=== PATIENT | female | born 1990 | race Caucasian/White ===

== ENCOUNTER → 2017-07-05 | Outpatient (CLI) | payer BC ==
[~2017-07-05] MED LIST: AMOXPOW3 PO; MULT-506 PO; PROP40TA5 PO
== END | disposition home or self-care (01) ==
LOC: C.PAPS 16:38
PROVIDERS: ATTEND Obstetrics & Gynecology
DX: R87.612 Low grade squamous intraepithelial lesion on cytologic smear of cervix (LGSIL) (principal)

== ENCOUNTER → 2017-07-05 | Outpatient (CLI) | payer BC | END | disposition home or self-care (01) | LOC: C.PATHSPEC 16:00 | PROVIDERS: ATTEND Obstetrics & Gynecology | DX: R87.612 Low grade squamous intraepithelial lesion on cytologic smear of cervix (LGSIL) (principal); N72 Inflammatory disease of cervix uteri; R87.610 Atypical squamous cells of undetermined significance on cytologic smear of cervix (ASC-US) ==

== ENCOUNTER → 2017-07-10 | Outpatient (CLI) | payer BC ==
[2017-07-10 12:22] LABS: BASO % 0.5 %; BASO ABS # 0.03 K/uL (0-0.2); COMPLETE YES; EOS % 2.2 %; HEMATOCRIT 40.5 % (37-47); IG% 0.2 %; LYMPH % 29.9 %; LYMPH ABS # 1.92 K/uL (1.2-3.4); MEAN CELL VOLUME 90.6 fL (80-100); MEAN CORPUSCULAR HEMOGLOBIN 30.6 pg (25-34); MEAN CORPUSCULAR HGB CONC 33.8 g/dl (32-36); MEAN PLATELET VOLUME 11.9 fL (7.4-10.4); MONO % 5.6 %; NEUT % 61.6 %; PLATELET COUNT 189 K/uL (130-400); RED BLOOD COUNT 4.47 M/uL (4.2-5.4); WHITE BLOOD COUNT 6.42 K/uL (4.8-10.8)
[2017-07-10 12:45] LABS: PREG INTERNAL NEGATIVE QC NEG CLEAR BACKGROUND; PREG INTERNAL POSITIVE QC POS CONTROL LINE
== END | disposition home or self-care (01) ==
LOC: C.LAB1850 10:59
PROVIDERS: ATTEND Obstetrics & Gynecology
DX: Z01.812 Encounter for preprocedural laboratory examination (principal); N92.0 Excessive and frequent menstruation with regular cycle; Z30.2 Encounter for sterilization

== ENCOUNTER → 2017-07-12 | Day surgery (SDC) | payer BC ==
[2017-06-19 11:50] VITALS: Ht 162.6 cm; Wt 54.5 kg
--- NOTE | 2017-07-05 15:15 | HISTORY & PHYSICAL EXAMINATION ---
DATE OF ADMISSION: 07/12/2017 CHIEF COMPLAINT: Heavy vaginal bleeding with clotting, desire for permanent sterilization. HISTORY OF PRESENT ILLNESS: The patient is a 27-year-old 3, para 3. General health is complicated by mitral valve prolapse and premature ventricular contractions for which she is on Inderal 40 mg t.i.d. She is on no form of control. She has had heavy vaginal bleeding with clots and heavy bleeding for over a year. Cycles are described as coming every 28 days, lasting for 6-7 days. She has 3 heavy days where she can easily soak over a pad an hour and she is unable to leave the house due to the heavy bleeding. She has also had trouble with control pills, which give her migraines and with some of these migraine she has symptoms of aura. She is presently being scheduled for an outpatient D&C, hysteroscopy, uterine ablation and bilateral tubal ligation. She has also been informed of the nature of the procedure of tubal ligation and that it is intended to result in permanent and irreversible sterility. PAST MEDICAL HISTORY: She has 3 children in good health. ALLERGIES: ALLERGIC TO SULFA. PAST SURGICAL HISTORY: She has had her wisdom teeth removed. MEDICAL HISTORY: She has a history of migraines with aura. She has PVCs for which she takes beta blockers. SOCIAL HISTORY: No smoking. No excessive alcohol intake. Works as a housewife. FAMILY HISTORY: Mom is 49 in good health. Father 49 in good health. Two sisters in good health. REVIEW OF SYSTEMS: She has problems with migraine headaches which are associated with aura. Headaches are severe enough that she has often had to go to the Emergency Room for shots of Demerol to control the pain. PHYSICAL EXAMINATION: GENERAL: Well-developed, well-nourished 27-year-old white female, alert, oriented x3 and cooperative in no acute distress, appears stated age. EYES: Conjunctivae are pink, sclerae white, no evidence of jaundice. EARS: Had normal light reflex bilaterally. NOSE: Had normal mucosa. Septum is midline. There were no polyps. THROAT: No erythema or evidence of infection. Teeth are in good state of repair. HEAD: Normocephalic, normal distribution of hair. NECK: Supple. Trachea midline. Thyroid is not enlarged. There is no adenopathy appreciated. Both carotids are of good intensity. CHEST: Clear to auscultation and percussion. No wheezes, rales or rhonchi appreciated. HEART: Regular rhythm. S1 and S2 are normal. BREAST EXAMINATION: Normal. ABDOMEN: Soft and nontender. PELVIC EXAMINATION: Revealed normal-appearing cervix. Uterus was top normal size. There were no adnexal masses appreciated. MUSCULOSKELETAL EXAMINATION: Revealed no calf tenderness. IMPRESSIONS OF THIS CASE: Status post wisdom teeth removal, history of migraine headaches, premature ventricular contractions, hypermenorrhea and desire for permanent sterilization.
[~2017-07-12] VITALS: Ht 162.6 cm; Wt 54.5 kg
[~2017-07-12] MED LIST changes: +ATROPINE SULFATE 0.1 MG/ML 5ML SYR IV PRN; +BUPIVACAINE/EPINEPHRINE 0.5% MPF 1:200,000 30 ML VIAL ONE; +DEXAMETHASONE SOD INJ 4 MG/ML VIAL ONE; +EpHEDrine SULFATE INJ 50 MG/ML AMP IV PRN; +FENTANYL CITRATE INJ 50 MCG/1 ML 2 ML VIAL IV PRN; +FENTANYL CITRATE INJ 50 MCG/1 ML 2 ML VIAL ONE; +GLYCOPYRROLATE INJ 0.2 MG/ML VIAL ONE; +HYDROCODONE/ACETAMOPHEN 5/325MG TAB PO PRN; +IBUPROFEN 600 MG TAB PO PRN; +KETOROLAC TROMETHAMINE 30 MG/ML VIAL IV. PRN; +KETOROLAC TROMETHAMINE 30 MG/ML VIAL ONE; +LACTATED RINGER'S 1000ML 1,000 ML IV SCH; +LIDOCAINE HCL 2% 2 ML VIAL (20MG/ML) ONE; +MIDAZOLAM HCL 1 MG/ML 2ML VIAL ONE; +NEOSTIGMINE METHYLSULFATE 5 MG/5 ML SYR ONE; +ONDANSETRON INJ 2 MG/ML 2 ML VIAL IV PRN; +ONDANSETRON INJ 2 MG/ML 2 ML VIAL ONE; +OXYCODONE/ACETAMINOPHEN 5-325 TAB PO PRN; +PROMETHAZINE HCL INJ 6.25 MG in SODIUM CHLORIDE 0.9% 50ML 50 ML IV PRN; +PROPOFOL IV EMULSION 10 MG/ML 20 ML VIAL IV ONE; +ROCURONIUM BROMIDE 10 MG/ML 5 ML VIAL IV ONE; +SODIUM CHLORIDE 0.9% 1000ML 1,000 ML IV SCH; +SODIUM CHLORIDE 0.9% INJ 10 ML VIAL ONE
--- NOTE | 2017-07-12 11:55 | History & Physical Bridge Note ---
H&P Re-Evaluation Bridge Note: I have examined the patient, reviewed the History & Physical and in the interval since the performance of the History & Physical I have noted the following changes of clinical significance: No changes noted
--- NOTE | 2017-07-12 13:12 | [facility] Post Operative Brief Note ---
Immediate Operative Summary Operative Date Jul 12, 2017. Pre-Operative Diagnosis Hypermenorrhea, desire for sterilization Post-Operative Diagnosis same Procedure(s) Performed Laparoscopic Tubal Sterilization, Dilatation And Curettage, Hysteroscopy With Endometrial Ablation Surgeon Dr Ernst Clip Wrapper Surgeon(s) none Estimated Blood Loss 10 ML Findings normal pelvis Specimens A) endometrial currettings Complication(s) None Disposition Recovery Room / PACU
--- NOTE | 2017-07-12 13:15 | Discharge Instructions-SurgCtr ---
Discharge Instructions Date of Service Jul 12, 2017. Visit Reason for Visit: Hypermenorrhea, Desire For Sterilization Discharge Discharge Diagnosis / Problem: heavy vaginal bleeding Discharge Goals Goal(s): Decrease discomfort, Improve function Activity Recommendations Activity Limitations: as noted below SPECIAL CARE INSTRUCTIONS: * Check temperature twice daily for one week. Report any elevation over 100.4 degrees Fahrenheit (38.0 degrees Celsius). * Call office in the next few days for return appointment. * You may experience some vaginal spotting and/or bleeding, this is normal for one or two weeks and should not alarm you. * Post-operative discomfort may consist of a sore throat, a "bloated" feeling and pain in the shoulders. These are normal symptoms which usually only last for two or three days. FOLLOW UP VISIT: Keep any scheduled doctor appointments. Anesthesia . Post Anesthesia Instructions: If you have had General Anesthesia or IV Sedation: * Do not drive today. * Resume driving when surgeon permits. * Do not make important decisions or sign legal documents today. * Call surgeon for: 1. Temperature elevations greater than 101 degrees F. 2. Uncontrollable pain. 3. Excessive bleeding. 4. Persistent nausea and vomiting. 5. Medication intolerance (nausea, vomiting or rash). * For nausea and vomiting use only clear liquids such as: tea, soda, bouillon until nausea subsides, then gradually increase diet as tolerated. * If you have any concerns or questions, call your surgeon's office. If physician is unavailable and it is an emergency, call 911 or go to the nearest emergency room. . Instructions / Follow-Up Instructions / Follow-Up ACTIVITY RECOMMENDATIONS: * Rest the first 2-3 days. You should be back to your normal activity levels by day 3. * No heavy lifting for 2 weeks. * No intercourse, tampons or douching for 1-2 weeks. * You may shower the next day. * Do not drive anytime that you are taking narcotic pain medicines. RETURN TO SCHOOL/WORK: * May return to school or work after 2-3 days. DIET: Nausea may occur in the immediate post-operative period. If so, take clear liquids such as tea, bouillon, apple juice until all nausea has subsided, then resume usual diet. MEDICATIONS: Resume previous medications unless instructed otherwise by your surgeon. Ibuprofen 200mg 2-3 tablets every 4-6 hours as needed -- OR -- Aleve 2 tablets every 8-12 hours as needed for post-operative discomfort Medications are over the counter. Tylenol may be used if above medications are contraindicated or not preferred. Medication should be taken with food or milk. Do not take on an empty stomach. SPECIAL CARE INSTRUCTIONS: * Check temperature twice daily for one week. report any elevation over 101 degrees. * You may experience some vagina spotting and/or bleeding. This is normal for 1 -2 weeks and should not be heavier than a normal period. If it is unusual in amount, call your physician. * Post-operative discomfort may consist of a sore throat, a "bloated" feeling and pain in the shoulders. these are normal symptoms, which usually only last for 2-3 days. * Remove band-aids tomorrow and shower. There is no need to replace band-aids unless there is drainage or discomfort. FOLLOW UP VISIT: Call your doctor's office for a post-operative 2 week visit if not already scheduled. Diet Recommendations Home Diet: resume previous diet Procedures Procedures Performed: Laparoscopic Tubal Sterilization, Dilatation And Curettage, Hysteroscopy With Endometrial Ablation Pending Studies Studies pending at discharge: no Medical Emergencies . Who to Call and When: Medical Emergencies: If at any time you feel your situation is an emergency, please call 911 immediately. . Non-Emergent Contact Non-Emergency issues call your: Information Security Consultant Call Non-Emergent contact if: temperature is above 100.5 . . "Provider Documentation" section prepared by Ernesto Ernst. .
--- NOTE | 2017-07-12 13:43 | OPERATIVE REPORT ---
DATE OF OPERATION: 07/12/2017 PROCEDURE: D&C hysteroscopy, endometrial ablation along with the laparoscopic tubal cauterization. INDICATIONS FOR SURGERY: Heavy vaginal bleeding with clotting. Desire for permanent sterilization. POSTOPERATIVE DIAGNOSES: Same. Uterus sounded to 9 cm. SURGEON: Dr. Ernst. ESTIMATED BLOOD LOSS: 10 mL. ANESTHESIA: General. OPERATIVE FINDINGS AND PROCEDURE: The patient was brought to the OR table, correctly identified by armband and conversation. General anesthesia was administered. Perineum and vagina were painted with Betadine paint along with the lower abdomen and umbilical area. A Larson catheter was used to empty the bladder. A careful pelvic exam under anesthesia revealed a normal size, mid to retroverted positioned uterus. There were no adnexal masses appreciated. A weighted speculum was placed in the posterior vagina. Anterior lip of the cervix was grasped with a single tooth tenaculum at 12 o'clock. The uterus was sounded to 9 cm. Cervix was dilated with graduated dilators. The small hysteroscope with normal saline distention medium was placed into the uterine cavity. Photographs were taken. There were no obvious polyps present. After photographing the endometrial cavity while the hysteroscope was removed, then a NovaSure endometrial device was inserted into the uterine cavity. The cervical length was measured at 5 cm. The device was opened and it spread to about 4.5 cm. We then did a test to ensure that the uterine cavity was intact. The test passed and then, the device turned on. At 1 minute and 32 seconds, the device stopped. We then waited for a while and then removed the NovaSure device from the uterus. We reinserted the hysteroscope. It should be noted that the power was 124 and cavity width was 4.5. Cervical length was 5 and the run time was 1 minute and 32 seconds. After reinserting the hysteroscope, we demonstrated a good hollie of the endometrial cavity, removed the scope and then inserted an acorn cannula and connected it to the cervix. Attention was turned to the lower abdomen. Subumbilical area was infiltrated with local with epinephrine. Stab wound was placed and Veress needle was inserted into the abdominal cavity. Position was checked with normal saline. Then, about 3 liters of carbon dioxide gas was passed under low pressure. Incision was then widened laterally. Large cannula and trocar was inserted. Trocar was removed and then laparoscope was inserted. Good visualization of pelvic structures was obtained at this time. Photographs were taken. A second puncture site was made in the midline 3 fingerbreadths above the pubic symphysis. This area was infiltrated with local with epinephrine. Stab wound was placed and then, a 5-mm trocar and sleeve was inserted under direct visualization. Trocar was removed and then a blunt probe was used to manipulate the bowels out of the pelvic cavity. Bipolar cauterization forceps was inserted into the abdomen and each fallopian tube was grasped in the mid portion and cauterized in 2 consecutive and adjacent areas, the burn going through the tube and into the meso. Following this, the cautery was removed. Laparoscopic scissors were inserted and the burned area was cut and with a blunt probe, you could see that the tube had been transected on both the right and left side. Photographs were taken. Following this, hemostasis was excellent. The gas was expressed manually. Instruments were removed. Ports were cleansed with Betadine and sutured with interrupted suture of Vicryl. I attest to the content of the Intraoperative Record and any orders documented therein. Any exception s are noted below.
[2017-07-12 14:12] VITALS: TEMP 36.4
--- NOTE | 2017-07-12 14:38 | Anesthesia Progress Nt - [facility] ---
Anesthesia Post Op Note Date & Time Jul 12, 2017 at 14:38 Vital Signs Pain Intensity: 2 Vital Signs Past 12 Hours Date Time Temp Pulse Resp B/P (MAP) Pulse Ox O2 Delivery O2 Flow Rate FiO2 07/12/17 14:12 36.4 66 16 102/69 (80) 98 Room Air 07/12/17 14:03 68 14 07/12/17 14:03 69 14 98 07/12/17 14:01 110/67 07/12/17 13:58 36.7 69 12 110/67 98 Room Air 07/12/17 13:58 61 15 98 07/12/17 13:58 61 15 07/12/17 13:55 103/71 07/12/17 13:53 58 15 99 07/12/17 13:53 58 15 07/12/17 13:50 103/77 07/12/17 13:48 68 17 100 07/12/17 13:48 68 17 07/12/17 13:46 112/76 07/12/17 13:43 55 14 07/12/17 13:43 55 14 100 07/12/17 13:40 117/75 07/12/17 13:38 54 20 100 07/12/17 13:38 53 20 07/12/17 13:35 113/77 07/12/17 13:33 54 19 07/12/17 13:33 54 19 100 07/12/17 13:30 116/79 07/12/17 13:28 64 23 07/12/17 13:28 63 23 100 07/12/17 13:25 109/78 07/12/17 13:23 71 14 07/12/17 13:23 72 14 100 07/12/17 13:20 112/78 07/12/17 13:18 72 14 100 07/12/17 13:18 72 14 07/12/17 13:15 110/80 07/12/17 13:13 90 07/12/17 13:13 36.6 87 12 117/81 100 Mask 6 07/12/17 13:13 85 117/81 100 07/12/17 11:23 36.8 64 16 114/78 (90) 99 Room Air Notes Mental Status: alert / awake / arousable, participated in evaluation Pt Amnestic to Procedure: Yes Nausea / Vomiting: adequately controlled Pain: adequately controlled Airway Patency, RR, SpO2: stable & adequate BP & HR: stable & adequate Hydration State: stable & adequate Anesthetic Complications: no major complications apparent
[2017-07-12 14:40] VITALS: BP 102/65; PULSE 66; O2SAT 96
== END | disposition home or self-care (01) ==
LOC: X.SURG 10:52
PROVIDERS: ATTEND Obstetrics & Gynecology
DX: Z30.2 Encounter for sterilization (principal); N92.0 Excessive and frequent menstruation with regular cycle; Z88.2 Allergy status to sulfonamides; Z98.818 Other dental procedure status

== ENCOUNTER 2017-12-12 11:48 | Inpatient (IN) | payer BC ==
[~2017-12-12] VITALS: Ht 162.6 cm; Wt 56.0 kg
[~2017-12-12 11:48] MED LIST changes: -ATROPINE SULFATE 0.1 MG/ML 5ML SYR IV PRN; -BUPIVACAINE/EPINEPHRINE 0.5% MPF 1:200,000 30 ML VIAL ONE; -DEXAMETHASONE SOD INJ 4 MG/ML VIAL ONE; -EpHEDrine SULFATE INJ 50 MG/ML AMP IV PRN; -FENTANYL CITRATE INJ 50 MCG/1 ML 2 ML VIAL IV PRN; -FENTANYL CITRATE INJ 50 MCG/1 ML 2 ML VIAL ONE; -GLYCOPYRROLATE INJ 0.2 MG/ML VIAL ONE; -HYDROCODONE/ACETAMOPHEN 5/325MG TAB PO PRN; -IBUPROFEN 600 MG TAB PO PRN; -KETOROLAC TROMETHAMINE 30 MG/ML VIAL IV. PRN; -KETOROLAC TROMETHAMINE 30 MG/ML VIAL ONE; -LACTATED RINGER'S 1000ML 1,000 ML IV SCH; -LIDOCAINE HCL 2% 2 ML VIAL (20MG/ML) ONE; -MIDAZOLAM HCL 1 MG/ML 2ML VIAL ONE; -NEOSTIGMINE METHYLSULFATE 5 MG/5 ML SYR ONE; -ONDANSETRON INJ 2 MG/ML 2 ML VIAL IV PRN; -ONDANSETRON INJ 2 MG/ML 2 ML VIAL ONE; -OXYCODONE/ACETAMINOPHEN 5-325 TAB PO PRN; -PROMETHAZINE HCL INJ 6.25 MG in SODIUM CHLORIDE 0.9% 50ML 50 ML IV PRN; -PROPOFOL IV EMULSION 10 MG/ML 20 ML VIAL IV ONE; -ROCURONIUM BROMIDE 10 MG/ML 5 ML VIAL IV ONE; -SODIUM CHLORIDE 0.9% 1000ML 1,000 ML IV SCH; -SODIUM CHLORIDE 0.9% INJ 10 ML VIAL ONE
--- NOTE | 2017-12-12 12:47 | History and Physical ---
History & Physical Date Dec 12, 2017. Chief Complaint Left iliac vein thrombosis History of Present Illness The patient is a 27 year old female who developed left leg swelling last week. She was diagnosed as a left iliac venous thrombosis. She had a repeat study done this week which did not show any change. Her leg is still swollen. She was on Xarelto for the DVT. She does complain of pain in her left leg. She denies chest pain or shortness of breath. She denies any previous leg swelling or clots in either leg. She has not been on any long trips. 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 No family history of clotting. No bleeding tendencies. She does have mitral valve prolapse. Vitals Vital Signs Past 12 Hours Date Time Temp Pulse Resp B/P (MAP) Pulse Ox O2 Delivery O2 Flow Rate FiO2 12/12/17 11:51 36.8 86 20 115/79 100 Room Air Allergies Coded Allergies: Sulfa Antibiotics (Verified Allergy, Unknown, UNSURE, A CHILD RX, 07/12) Home Medications Scheduled Multivitamin (Multivitamin), 1 TAB PO QAM Propranolol Hcl (Propranolol Hcl), 1 TAB PO BID Scheduled PRN [Amoxicillin], 4 CAP PO DIRECTED PRN for BEFORE DENTAL PROCEDURES Problem List Medical Problems: (1) Iliac vein thrombosis, left Surgical / Medical History Hx Cardiac Surgery: No Hx Abdominal Surgery: No Hx Cancer Surgery: No Hx Thoracic Surgery: No Hx Orthopedic: No Hx Urinary Tract Surgery: No Past Medical/Surgical History: Other (mitral valve prolapse) Social History Smoking Status: Never Smoker Hx Tobacco Use In Past Year?: No Hx Alcohol Use - Type & Amnt: No Hx Substance Use -Type & Amnt: No Review of Systems Constitutional: No chills, No diaphoresis, No fever, No malaise, No weakness, No weight gain, No weight loss, No sweats, No fatigue, No problem reported Eyes: No discharge, No blurred vision, No double vision, No eye pain, No tearing, No itching, No photophobia, No redness, No visual changes, No dryness, No irritation, No problem reported ENMT: No dental pain, No loss of hearing, No epistaxis, No ear discharge, No ear pain, No gum swelling, No mouth pain, No mouth swelling, No nasal congestion , No nasal pain, No rhinorrhea, No stridor, No tinnitus, No sore throat, No throat swelling, No problem reported Respiratory: No cough, No cyanosis, No LEWIS, No hemoptysis, No orthopnea, No PND , No short of breath, No sputum production, No stridor, No wheezing, No dyspnea , No problem reported Cardiovascular: No chest pain, No chest tightness, No chest pressure, No palpitations, No syncope, No diaphoresis, No edema, No intermittent claudication , No orthopnea, No cyanosis, No mumur, No lightheadedness, No paroxysmal nocturnal dyspnea, No problem reported Gastrointestinal: No abdominal pain, No constipation, No diarrhea, No nausea, No vomiting, No anorexia, No appetite changes, No belching, No flatulence, No food intolerance, No hematemesis, No hemorrhoids, No hematochezia, No stool changes, No heartburn, No indigestion, No dysphagia, No rectal bleeding, No problem reported Genitourinary - Female: No dysmenorrhea, No dysuria, No hematuria, No hesitancy , No menorrhagia, No metrorrhagia, No , No rash, No urinary frequency, No urinary incontinence, No urinary retention, No urinary urgency, No vulvadynia , No vaginal bleeding, No vaginal discharge, No vaginal itching, No breast problems, No problem reported Musculoskeletal: + problem reported (left leg pain), No back pain, No gout, No joint pain, No joint swelling, No muscle pain, No muscle stiffness, No muscle weakness, No neck pain Neurologic: No dizziness, No weakness, No headache, No lethargy, No numbness, No paresthesia, No pre-existing deficit, No seizures, No tics, No tingling, No tremors, No vertigo, No memory loss, No LOC, No problem reported Psychiatric: No anxiety, No alcohol abuse, No auditory hallucinations, No depression, No drug abuse, No homicidal ideation, No mood changes, No suicidal ideation, No visual hallucinations, No problem reported Physical Exam Constitutional: General Apperance: heathly-appearing, well-nourished, well-developed Level of Distress: NAD Ambulation: limited ambulation Psychiatric: Mental Status: active & alert, normal mood, normal affect Orientation: oriented except where noted, to time, to place, to person Memory: recent memory normal, remote memory normal Head: normocephalic Neck: supple, trachea midline Lungs: Auscultation: breath sounds normal Cardiovascular: Heart Auscultation: RRR Peripheral Pulses: Pulses: full and equal, in all extremities except if noted Abdomen: Inspection & Palpation: soft Musculoskeletal: normal, normal strength (5/5 throughout), normal tone Extremities: Upper Right: no cyanosis, no edema, no varicosities, no palpable cord, no clubbing, no ulcers, no mottling Upper Left: no cyanosis, no edema, no varicosities, no palpable cord, no clubbing, no ulcers, no mottling Lower Right: no cyanosis, no edema, no varicosities, no palpable cord, no clubbing, no ulcers, no mottling Lower Left: edema Neurologic: Cranial Nerves: grossly intact Sensation: grossly intact Assessment and Plan Imp: DVT of left iliac vein Plan: Patient is admitted for anticoagulation therapy with infusion of TPA to be started tomorrow. I have discussed the risks options and benefits of the procedure with the patient. The patient understands the risks options and benefits and agrees to the procedure.
[2017-12-12 13:50] VITALS: BP 112/75; PULSE 72; TEMP 36.6; O2SAT 99; Ht 162.6 cm; Wt 56.0 kg
[2017-12-12 14:20] LABS: HEMATOCRIT 39.2 % (37-47); HEMOGLOBIN 13.7 g/dL (12.0-16.0); MEAN CELL VOLUME 88.3 fL (80-100); MEAN CORPUSCULAR HEMOGLOBIN 30.9 pg (25-34); MEAN CORPUSCULAR HGB CONC 34.9 g/dl (32-36); MEAN PLATELET VOLUME 10.8 fL (7.4-10.4); PLATELET COUNT 246 K/uL (130-400); RED CELL DISTRIBUTION WIDTH CV 12.6 % (11.5-14.5); RED CELL DISTRIBUTION WIDTH SD 40.5 fL (36.4-46.3); WHITE BLOOD COUNT 8.18 K/uL (4.8-10.8)
[2017-12-12 14:28] LABS: INR 1.3 (0.9-1.1); PTT PATIENT 35.9 SECONDS (21.0-31.0)
[2017-12-12] MEDS ORDERED: SODIUM CHLORIDE 0.9% 1000ML 1,000 ML IV SCH (14:30)
[2017-12-12 14:38] LABS: CALCIUM 9.5 mg/dl (8.5-10.1); CREATININE 0.6 mg/dl (0.60-1.20); POTASSIUM 3.7 mmol/L (3.5-5.1)
[2017-12-12] MEDS ORDERED: XRL10 PO (14:42)
[2017-12-12] MEDS ORDERED: DOCU100C31 PO (14:43)
[2017-12-12] MEDS ORDERED: OXYC1TAB3 PO (14:43)
[2017-12-12] MEDS: OXYCODONE/ACETAMINOPHEN 5-325 TAB PO PRN (14:47)
[2017-12-12 15:18] VITALS: BP 92/62; PULSE 93; TEMP 36.9; O2SAT 99
[2017-12-12] MEDS ORDERED: HEPARIN 25000 UNIT/500 ML D5W ONE (15:44)
[2017-12-12] MEDS: HEPARIN 25,000 UNIT/500ML D5W 500 ML IV SCH ×2 (16:15→22:36)
[2017-12-12] MEDS: PROPRANOLOL HCL 20 MG TAB PO SCH (20:57)
[2017-12-12 22:35] LABS: PTT PATIENT 50.2 SECONDS (21.0-31.0)
[2017-12-12 23:26] VITALS: BP 98/55; PULSE 66; TEMP 36.7; O2SAT 94
[2017-12-13] VITALS (15 sets, daily range): BP systolic 80–109; BP diastolic 44–77; PULSE 64–96; TEMP 36.8–37.2; O2SAT 86–100
[2017-12-13] MEDS: OXYCODONE/ACETAMINOPHEN 5-325 TAB PO PRN ×4 (00:52→21:22)
[2017-12-13] MEDS ORDERED: CEFAZOLIN 1000MG IV PUSH 7.5 ML IV SCH (06:00)
[2017-12-13] MEDS ORDERED: CEFAZOLIN IV 1,000 MG in DEXTROSE 5% 50ML 50 ML IV ONE (06:00)
--- NOTE | 2017-12-13 06:56 | Progress Note ---
Progress Note Date of Service Dec 13, 2017. Progress Note Patient for insertion of infusion catheter with possible TPA. I have discussed the risks options and benefits of the procedure with the patient. The patient understands the risks options and benefits and agrees to the procedure. I have examined the patient, reviewed the History & Physical and in the interval since the performance of the History & Physical I have noted the following changes of clinical significance: No changes noted
[2017-12-13] MEDS: PROPRANOLOL HCL 20 MG TAB PO SCH ×2 (07:11→20:31)
[2017-12-13] MEDS ORDERED: MIDAZOLAM HCL 1 MG/ML 2ML VIAL ONE ×2 (07:26→09:22)
[2017-12-13] MEDS ORDERED: FENTANYL CITRATE INJ 50 MCG/1 ML 2 ML VIAL ONE (07:26)
[2017-12-13 08:32] LABS: PTT PATIENT 65.4 SECONDS (21.0-31.0)
--- NOTE | 2017-12-13 08:42 | Pre Sedation Assessment ---
Pre Sedation Assessment General Date of Sedation: Dec 13, 2017. Vital Signs Past 12 Hours Date Time Temp Pulse Resp B/P (MAP) Pulse Ox O2 Delivery O2 Flow Rate FiO2 12/13/17 00:00 Room Air 12/12/17 23:26 36.7 66 15 98/55 (69) 94 Room Air Review Cardiovascular: regular rate, rhythm Lungs: lungs clear Pre-Sedation Airway Assessment Smoking Status: Unknown if Ever Smoked Short Thick Neck: No Thyro-mental Distance: > 3 Finger Breadths Oral Cavity: WNL Mallampati Classification: Class I ASA Classification: Class II NPO Status Date of Last Intake of Fluids: Dec 12, 2017 Time of Last Intake of Fluids: 2358 Date of Last Intake of Solids: Dec 12, 2017 Time of Last Intake of Solids: 1899 Procedure Planning Contraindications for Sedation: None Current Medications Reviewed: Yes Notes The planned sedation has been discussed with the patient. Informed Consent was obtained. I have identified the patient, determined the appropriateness of sedation and have assessed the patient immediately prior to the procedure. All medicine(s) and interventions are by my order.
[2017-12-13] MEDS ORDERED: LIDOCAINE HCL 1% 20 ML VIAL SQ ONE (09:28)
[2017-12-13] MEDS ORDERED: FENTANYL CITRATE INJ 50 MCG/1 ML 2 ML VIAL IV ONE (09:33)
[2017-12-13] MEDS ORDERED: MIDAZOLAM HCL 1 MG/ML 2ML VIAL IV ONE (09:41)
[2017-12-13] MEDS ORDERED: NURSING VERBAL MED ORDER ONE (09:55)
[2017-12-13] MEDS ORDERED: MoRPHine SULFATE 4 MG/ML 1 ML CARP\\VIAL IV PRN (10:15)
--- NOTE | 2017-12-13 10:17 | [facility] Post Operative Brief Note ---
Immediate Operative Summary Operative Date Dec 13, 2017. Pre-Operative Diagnosis Left Iliac Vein Thrombosis Post-Operative Diagnosis Left Iliac Vein Thrombosis Procedure(s) Performed Insertion of Vena Cava Filter, Right Internal Jugular Approach, Fluoroscopy for positioning. Venacavagram, Insertion of Infusion Catheter for Thrombolysis, Thrombolytic Therapy, Moderate Sedation from 0901 - 1000. Surgeon Dr. Ross Scrap Hoist Operator Surgeon(s) Dr. Qureshi Estimated Blood Loss 2 Findings Consistent with Post-Op Diagnosis Specimens none Drains None Anesthesia Type IV Sedat Cons RN Only Complication(s) none Disposition Accompanied Pt To Recover: no Disposition: Surgical ICU
[2017-12-13] MEDS ORDERED: IODIXANOL (VISIPAQUE) 270 MG/ML 50ML FLUSH ONE (10:34)
[2017-12-13 11:00] LABS: BASO % 0.3 %; BASO ABS # 0.02 K/uL (0-0.2); EOS % 4.9 %; HEMOGLOBIN 12.1 g/dL (12.0-16.0); IG# 0.01 K/uL (0.00-0.02); LYMPH % 25.2 %; LYMPH ABS # 1.54 K/uL (1.2-3.4); MEAN CELL VOLUME 88.8 fL (80-100); MEAN CORPUSCULAR HEMOGLOBIN 30.7 pg (25-34); MEAN PLATELET VOLUME 10.6 fL (7.4-10.4); MONO % 8.3 %; MONO ABS # 0.51 K/uL (0.11-0.59); NEUT % 61.1 %; NEUT ABS # 3.74 K/uL (1.4-6.5); PLATELET COUNT 193 K/uL (130-400); RED CELL DISTRIBUTION WIDTH CV 12.7 % (11.5-14.5); RED CELL DISTRIBUTION WIDTH SD 40.9 fL (36.4-46.3); WHITE BLOOD COUNT 6.12 K/uL (4.8-10.8)
[2017-12-13] MEDS ORDERED: ALTEPLASE, RECOMBINANT 24 MG in SODIUM CHLORIDE 0.9% 250ML 216 ML IV SCH ×2 (11:00)
[2017-12-13 11:04] LABS: MEAN CORPUSCULAR HGB CONC 34.6 g/dl (32-36)
[2017-12-13] MEDS ORDERED: MoRPHine SULFATE 2 MG/ML CARP IV PRN (11:15)
[2017-12-13 11:23] LABS: PTT PATIENT 53.1 SECONDS (21.0-31.0)
[2017-12-13] MEDS: HEPARIN 25,000 UNIT/500ML D5W 500 ML IV SCH ×2 (11:45→20:32)
--- NOTE | 2017-12-13 11:46 | DIAGNOSTIC IMAGING REPORT ---
DATE OF PROCEDURE: 12/13/2017 PREOPERATIVE DIAGNOSIS: Left iliac vein thrombosis. POSTOPERATIVE DIAGNOSIS: Left iliac vein thrombosis. PROCEDURE: Ultrasound-guided right IJ access, insertion of vena cava filter, fluoroscopy for positioning, venacavogram, insertion of infusion catheter for thrombolysis, thrombolytic therapy, moderate sedation 59 minutes. SURGEON: Dr. Fahad Ross. TILTING HEAD BAND SAWYER: Dr. Haily Qureshi. ESTIMATED BLOOD LOSS: 2 mL. SPECIMENS: None. ANESTHESIA: Moderate sedation plus local. COMPLICATIONS: None. INDICATIONS: Mrs. Letty Elliott is an otherwise healthy 27-year-old female who developed left leg swelling last week. She was diagnosed with left iliac vein thrombosis and started on Xarelto. A repeat duplex was obtained which showed persistence of the clot and for this reason she was admitted to [facility]. She was recommended to undergo placement of an IVC filter and lytic catheter for thrombolysis of her left iliac DVT. Risks, benefits, and alternatives were discussed with the patient and she consented to the procedure. DESCRIPTION OF PROCEDURE: The patient was taken to the endovascular suite and placed in the supine position. Her right neck was assessed with ultrasound and a right IJ appeared patent. Her right neck was prepped and draped in the usual sterile fashion. A safety timeout was performed and the patient, procedure, and sidedness were correctly identified. Local anesthesia was used to anesthetize the skin overlying the right IJ. Ultrasound was again used to localize the right IJ and it was accessed with an 18-gauge access needle under ultrasound guidance. Angled 0.035 Glidewire easily passed through the needle and down into the IVC. A small skin wilmer was made at the access site. Needle was removed and a dilator was placed over the wire. This was removed and the sheath accompanying the IVC filter was placed down into the infrarenal IVC. A cavogram was obtained and showed the left iliac vein occlusion. It also identified the position of the renal veins bilaterally. The filter was introduced into the sheath and the sheath withdrawn. This allowed deployment of the IVC filter in the infrarenal IVC. Following successful deployment, the sheath was removed and manual pressure was held over the IJ access site for several minutes with good hemostasis. A sterile dressing was applied. We then turned our attention to the left groin. The left femoral vein was identified with ultrasound. The left groin was then prepped and draped in the usual sterile fashion. A safety timeout was performed for a second time and the patient, procedure, and sidedness were again correctly identified. Local anesthesia was used to anesthetize the skin overlying the femoral vein several centimeters distal to the groin crease for approximately 5 cm distal to the groin crease. The femoral vein was accessed with a micropuncture needle under ultrasound guidance. A micropuncture wire easily passed through the needle and into the common femoral vein. The needle was removed and a micropuncture sheath was placed. A floppy-angled Glidewire was placed through the micropuncture sheath. This was removed and a stiff angled Glidewire was then placed through the micropuncture sheath. The micropuncture sheath was removed and a short 6-Japanese sheath was placed into the left femoral vein. A venogram was obtained and showed the left iliac occlusion. A Quick-Cross catheter was then placed over the wire and into the left common femoral vein. This in combination with the stiff angled Glidewire was used to cross the iliac vein occlusion. The wire was removed and a venogram was obtained which confirmed positioning of the Quick-Cross catheter across the iliac vein occlusion and into the distal IVC. The stiff angled Glidewire was replaced and the Quick-Cross catheter was removed. A fountain catheter was then chosen with treatment length of 20 cm. This was placed over the wire and across the iliac occlusion. The wire was removed and a venogram was again obtained to confirm positioning of the catheter across the lesion. A wire accompanying the fountain catheter was placed and secured. The sheath was sutured in place with a silk suture. Extension tubing was connected to both the sheath and the infusion catheter. All catheters and sheaths were secured in a sterile blue towel and secured to the leg with large Tegaderm dressings. The patient tolerated the procedure well and there were no immediate complications. A Larson catheter was placed at the end of the case for patient comfort. She was transferred to the ICU in stable condition. The sheath was connected to a heparin drip. The infusion catheter will be connected to TPA once she reaches the ICU. She tolerated the procedure well and there were no immediate complications. Dr. Fahad Ross was present for the entire procedure.
[2017-12-13 16:20] LABS: BASO % 0.3 %; BASO ABS # 0.02 K/uL (0-0.2); EOS % 3.3 %; EOS ABS # 0.24 K/uL (0-0.5); HEMATOCRIT 34.2 % (37-47); IG# 0.01 K/uL (0.00-0.02); LYMPH % 20.2 %; LYMPH ABS # 1.48 K/uL (1.2-3.4); MEAN CELL VOLUME 89.1 fL (80-100); MEAN CORPUSCULAR HEMOGLOBIN 31.3 pg (25-34); MEAN CORPUSCULAR HGB CONC 35.1 g/dl (32-36); MEAN PLATELET VOLUME 10.8 fL (7.4-10.4); MONO % 9.1 %; MONO ABS # 0.67 K/uL (0.11-0.59); NEUT ABS # 4.91 K/uL (1.4-6.5); PLATELET COUNT 196 K/uL (130-400); RED CELL DISTRIBUTION WIDTH CV 12.9 % (11.5-14.5); RED CELL DISTRIBUTION WIDTH SD 41.7 fL (36.4-46.3); WHITE BLOOD COUNT 7.33 K/uL (4.8-10.8)
[2017-12-13 16:53] LABS: PTT PATIENT 32.5 SECONDS (21.0-31.0)
[2017-12-13] MEDS: ONDANSETRON INJ 2 MG/ML 2 ML VIAL IV PRN (17:23)
--- NOTE | 2017-12-13 20:13 | Critical Care Consultation ---
Critical Care Consultation Date of Consultation: Dec 13, 2017. Attending Physician: Fahad Ross M.D. Reason for Consultation: Catheter thrombolysis of DVT. History of Present Illness Dear Dr. Ross: Thank you for the kind referral of Mrs. Elliott to critical care service. This is a 27-year-old female with a history of mitral valve prolapse, who has been in her usual status of health, she is G3 para 3, presented recently with swelling of her left leg and was started on Xarelto. Return back again with repeated images which showed the persistence of DVT in the left iliac. The patient was taken to the OR with Dr. Ross where she underwent IVC filter placement as well as catheter placement into the left iliac vein with infusion of the TPA. The patient tolerated the procedure very well. And patient was brought to the ICU for further monitoring. When I interviewed the patient, she is very pleasant patient, denies any pain or discomfort of the moment, and, no shortness of breath, denies any discomfort in the groin area either, no pain in her leg at the moment, no swelling in the ankles as well. She has been very active and she participated in the gym as well according to her previously. She has not had any previous history of thrombosis and this was her first episode. No family history also of hypercoagulable state. Past Medical/Surgical History Mitral valve prolapse without a click followed by cardiology in [place]. Social History Smoking Status: Unknown if Ever Smoked Allergies Coded Allergies: Sulfa Antibiotics (Verified Allergy, Unknown, UNSURE, A CHILD RX, 07/12) Home Medications Scheduled Docusate Sodium (Docusate Sodium), 1 CAP PO DAILY Multivitamin (Multivitamin), 1 TAB PO QAM Propranolol Hcl (Propranolol Hcl), 1 TAB PO BID Rivaroxaban (Xarelto), 1.5 TAB PO BID Scheduled PRN Oxycodone Ir (Roxicodone Ir), 1-2 TAB PO Q4H PRN for Severe Pain [Amoxicillin], 4 CAP PO DIRECTED PRN for BEFORE DENTAL PROCEDURES Current Inpatient Medications Current Inpatient Medications Medications (Trade) Dose Ordered Sig/Carmen Route Start Time Stop Time Status Last Admin Dose Admin Oxycodone/ Acetaminophen (Percocet 5-325mg Tab) 1 tab Q4H PRN PO 12/12/17 12:30 12/26/17 12:29 12/13/17 16:36 1 TAB Propranolol HCl (Inderal Tab) 40 mg BID PO 12/12/17 21:00 01/11/18 20:59 12/13/17 07:11 40 MG Morphine Sulfate (MoRPHine SULFATE INJ) 4 mg Q2H PRN IV 12/13/17 10:15 12/27/17 10:14 Ondansetron HCl (Zofran Inj) 4 mg Q6H PRN IV 12/13/17 10:15 01/12/18 10:14 12/13/17 17:23 4 MG Heparin Sodium/ Dextrose 500 ml @ 12 mls/hr Q24H IV 12/13/17 11:00 01/12/18 10:59 12/13/17 11:45 12 MLS/MIN Alteplase, Recombinant 24 mg/ Sodium Chloride 240 ml @ 20 mls/hr Q12H IV 12/13/17 11:00 12/13/17 22:59 12/13/17 11:23 20 MLS/HR Alteplase, Recombinant 14 mg/ Sodium Chloride 280 ml @ 20 mls/hr Q14H IV 12/13/17 23:00 12/14/17 12:59 Morphine Sulfate (MoRPHine SULFATE INJ) 2 mg Q2H PRN IV 12/13/17 11:15 12/27/17 11:14 12/13/17 17:21 2 MG Cefazolin Sodium 7.5 ml @ 2.5 mls/min PREOP IV 12/14/17 06:00 12/14/17 18:00 Pantoprazole Sodium (Protonix Tab) 40 mg DAILY PO 12/14/17 09:00 12/18/17 08:59 Review of Systems Constitutional: No fever, No chills, No sweats, No weight loss, No weakness, No fatigue, No problem reported Eyes: No worsening of vision, No eye pain, No redness, No discharge, No diplopia, No problem reported ENT: No hearing loss, No unusual epistaxis, No nasal symptoms, No sore throat, No tinnitus, No dental problems, No trouble swallowing, No problem reported Respiratory: No cough, No sputum, No wheezing, No shortness of breath, No dyspnea on exertion, No dyspnea at rest, No hemoptysis, No problem reported Cardiovascular: No chest pain, No orthopnea, No PND, No edema, No claudication , No palpitations, No problem reported Abdomen: No pain, No nausea, No vomiting, No diarrhea, No constipation, No GI bleeding, No problem reported Musculoskeletal: + problem reported (Left leg pain.) Genitourinary - Female: No dysuria, No urinary frequency, No urinary urgency, No urinary incontinence, No urinary retention, No hematuria, No dysmenorrhea, No menorrhagia, No metrorrhagia, No rash, No vaginal bleeding, No vaginal discharge, No vaginal itching, No vulvodynia, No , No problem reported Neurologic: No memory loss, No paralysis, No weakness, No numbness/tingling, No vertigo, No balance problems, No problem reported Psychiatric: No depression symptoms, No anhedonism, No anxiety, No insomnia, No substance abuse, No problem reported Endocrine: No fatigue, No excessive thirst, No excessive urination, No problem reported Hematologic / Lymphatic: No abnormal bleeding/bruising, No clotting problems, No swollen lymph nodes, No night sweats, No problem reported Integumentary: No rash, No itch, No new/changing skin lesions, No color change , No bleeding, No problem reported Allergic / Immunologic: No environmental allergies, No seasonal allergies, No pet sensitivities, No food allergies, No hives, No frequent infections, No poor healing, No prolonged convalescence, No problem reported Physical Exam Date Time Temp Pulse Resp B/P (MAP) Pulse Ox O2 Delivery O2 Flow Rate FiO2 12/13/17 19:00 70 15 101/54 (70) 97 Room Air 12/13/17 18:00 71 12 83/44 (57) 96 Room Air 12/13/17 17:00 84 15 101/64 (76) 98 Room Air 12/13/17 16:00 67 16 93/61 (72) 99 Room Air 12/13/17 16:00 Room Air 12/13/17 15:00 70 12 82/51 (61) 97 Room Air 12/13/17 14:00 92 30 98/64 (75) 100 Room Air 12/13/17 13:00 96 16 102/73 (83) 97 Room Air 12/13/17 12:27 Room Air 12/13/17 12:16 87 16 109/77 (88) 94 Room Air 12/13/17 12:00 81 15 102/64 (77) 99 Room Air 12/13/17 11:40 37.2 72 16 100/70 (80) 98 Room Air 12/13/17 10:40 99 Room Air 12/13/17 10:25 66 16 100 Room Air 12/13/17 10:20 66 16 100 Room Air 12/13/17 10:15 66 16 112/73 100 Room Air 12/13/17 10:10 66 16 113/76 100 Room Air 12/13/17 10:05 70 16 101/73 99 Room Air 12/13/17 10:00 69 18 108/70 100 Mask 4 12/13/17 09:55 Mask 4 12/13/17 09:50 Mask 4 12/13/17 09:45 Mask 4 12/13/17 09:40 Mask 4 12/13/17 09:35 Mask 4 12/13/17 09:30 Mask 4 12/13/17 09:25 Mask 4 12/13/17 09:20 Mask 4 12/13/17 09:15 Mask 4 12/13/17 09:10 Mask 4 12/13/17 09:05 Mask 4 12/13/17 09:00 Mask 12/13/17 00:00 Room Air 12/12/17 23:26 36.7 66 15 98/55 (69) 94 Room Air General Appearance: well-appearing, no apparent distress Eyes: PERRLA, EOMI ENT: normal throat exam Neck: normal range of motion, other (Right IJ site postop clean and well maintained.) Respiratory: breath sounds normal Cardiovasular: regular rate/rhythm Abdomen: non tender, no rebound, no guarding Back: normal inspection Upper Extremities: no edema Lower Extremities: no edema Neuro: alert, oriented x 3, normal motor exam Psychiatric: normal affect Laboratory Results Last 24 Hours Test 12/12/17 21:54 12/13/17 08:01 12/13/17 10:49 12/13/17 15:52 Activated Partial Thromboplast Time 50.2 SECONDS 65.4 SECONDS 53.1 SECONDS 32.5 SECONDS Partial Thromboplastin Ratio 1.9 2.5 2.0 1.3 White Blood Count 6.12 K/uL 7.33 K/uL Red Blood Count 3.94 M/uL 3.84 M/uL Hemoglobin 12.1 g/dL 12.0 g/dL Hematocrit 35.0 % 34.2 % Mean Corpuscular Volume 88.8 fL 89.1 fL Mean Corpuscular Hemoglobin 30.7 pg 31.3 pg Mean Corpuscular Hemoglobin Concent 34.6 g/dl 35.1 g/dl Platelet Count 193 K/uL 196 K/uL Mean Platelet Volume 10.6 fL 10.8 fL Neutrophils (%) (Auto) 61.1 % 67.0 % Lymphocytes (%) (Auto) 25.2 % 20.2 % Monocytes (%) (Auto) 8.3 % 9.1 % Eosinophils (%) (Auto) 4.9 % 3.3 % Basophils (%) (Auto) 0.3 % 0.3 % Neutrophils # (Auto) 3.74 K/uL 4.91 K/uL Lymphocytes # (Auto) 1.54 K/uL 1.48 K/uL Monocytes # (Auto) 0.51 K/uL 0.67 K/uL Eosinophils # (Auto) 0.30 K/uL 0.24 K/uL Basophils # (Auto) 0.02 K/uL 0.02 K/uL RDW Standard Deviation 40.9 fL 41.7 fL RDW Coefficient of Variation 12.7 % 12.9 % Immature Granulocyte % (Auto) 0.2 % 0.1 % Immature Granulocyte # (Auto) 0.01 K/uL 0.01 K/uL Fibrinogen 290 mg/dl 255 mg/dl Test 12/13/17 15:55 Bedside Glucose 79 mg/dl Diagnostic Results Labs and imaging were reviewed from previous. Assessment & Plan 1. 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 IVC filter placement. 2. History of mitral valve prolapse. Plan: 1. Monitor in the ICU as the patient has TPA infusion. 2. Appreciate Dr. Ross input. 3. Oral intake. 4. Continue propranolol as it is her home medication. 5. No evidence of murmur or click on her exam. Patient however being followed also by cardiology as an outpatient. She has been stable in that regard. 6. No evidence of indurated area or signs of bleeding. Case discussed with the staff on rounds. Critical care time spent with the patient was 35 minutes
[2017-12-13 22:52] LABS: BASO % 0.3 %; BASO ABS # 0.02 K/uL (0-0.2); EOS % 3.7 %; EOS ABS # 0.24 K/uL (0-0.5); HEMATOCRIT 34.7 % (37-47); HEMOGLOBIN 11.8 g/dL (12.0-16.0); IG# 0.02 K/uL (0.00-0.02); LYMPH % 25.9 %; LYMPH ABS # 1.66 K/uL (1.2-3.4); MEAN CELL VOLUME 89.9 fL (80-100); MEAN CORPUSCULAR HEMOGLOBIN 30.6 pg (25-34); MEAN PLATELET VOLUME 10.6 fL (7.4-10.4); MONO % 7.5 %; MONO ABS # 0.48 K/uL (0.11-0.59); NEUT % 62.3 %; PLATELET COUNT 165 K/uL (130-400); RED CELL DISTRIBUTION WIDTH CV 12.9 % (11.5-14.5); RED CELL DISTRIBUTION WIDTH SD 41.7 fL (36.4-46.3); WHITE BLOOD COUNT 6.42 K/uL (4.8-10.8)
[2017-12-13] MEDS ORDERED: RECOMBINANT IV SCH ×2 (23:00)
[2017-12-13] MEDS ORDERED: SODIUM CHLORIDE 0.9% IV SCH ×2 (23:00)
[2017-12-13] MEDS ORDERED: ALTEPLASE IV SCH ×2 (23:00)
[2017-12-13 23:02] LABS: PTT PATIENT 40.1 SECONDS (21.0-31.0)
[2017-12-14] VITALS (35 sets, daily range): BP systolic 90–118; BP diastolic 58–81; PULSE 56–90; TEMP 37; O2SAT 90–99
[2017-12-14 04:24] LABS: BASO % 0.3 %; BASO ABS # 0.02 K/uL (0-0.2); EOS % 4.3 %; EOS ABS # 0.25 K/uL (0-0.5); HEMATOCRIT 34.9 % (37-47); HEMOGLOBIN 11.9 g/dL (12.0-16.0); IG# 0.01 K/uL (0.00-0.02); LYMPH % 27.7 %; MEAN CELL VOLUME 89.3 fL (80-100); MEAN CORPUSCULAR HEMOGLOBIN 30.4 pg (25-34); MEAN CORPUSCULAR HGB CONC 34.1 g/dl (32-36); MEAN PLATELET VOLUME 10.4 fL (7.4-10.4); MONO % 11.1 %; MONO ABS # 0.64 K/uL (0.11-0.59); NEUT % 56.4 %; NEUT ABS # 3.26 K/uL (1.4-6.5); PLATELET COUNT 158 K/uL (130-400); RED CELL DISTRIBUTION WIDTH CV 12.9 % (11.5-14.5); RED CELL DISTRIBUTION WIDTH SD 41.2 fL (36.4-46.3); WHITE BLOOD COUNT 5.78 K/uL (4.8-10.8)
[2017-12-14 04:40] LABS: CALCIUM 8.3 mg/dl (8.5-10.1); CREATININE 0.62 mg/dl (0.60-1.20); POTASSIUM 3.4 mmol/L (3.5-5.1)
[2017-12-14 05:06] LABS: PTT PATIENT 40.5 SECONDS (21.0-31.0)
[2017-12-14] MEDS ORDERED: CEFAZOLIN IV 1,000 MG in DEXTROSE 5% 50ML 50 ML IV SCH (06:00)
[2017-12-14] MEDS ORDERED: CEFAZOLIN 1000MG IV PUSH 7.5 ML IV SCH (06:00)
[2017-12-14] MEDS ORDERED: CEFAZOLIN IV 1,000 MG in SYRINGE 0 ML IV SCH (06:00)
[2017-12-14] MEDS: PROPRANOLOL HCL 20 MG TAB PO SCH (08:07)
[2017-12-14] MEDS ORDERED: NURSING VERBAL MED ORDER ONE (08:30)
[2017-12-14] MEDS ORDERED: [UNRECOGNIZED DRUG - REMARK] ONE (08:45)
--- NOTE | 2017-12-14 08:47 | Progress Note ---
Progress Note Date of Service Dec 14, 2017. Progress Note Patient is for recheck of her TPA infusion with possible intervention today.I have discussed the risks options and benefits of the procedure with the patient. The patient understands the risks options and benefits and agrees to the procedure. I have examined the patient, reviewed the History & Physical and in the interval since the performance of the History & Physical I have noted the following changes of clinical significance: No changes noted
[2017-12-14] MEDS ORDERED: FENTANYL CITRATE INJ 50 MCG/1 ML 2 ML VIAL ONE (08:52)
[2017-12-14] MEDS ORDERED: MIDAZOLAM HCL 1 MG/ML 2ML VIAL ONE ×2 (08:53→10:06)
[2017-12-14] MEDS ORDERED: PANTOprazole SOD 40 MG TAB PO SCH (09:00)
--- NOTE | 2017-12-14 09:07 | Pre Sedation Assessment ---
Pre Sedation Assessment General Date of Sedation: Dec 14, 2017. Vital Signs Past 12 Hours Date Time Temp Pulse Resp B/P (MAP) Pulse Ox O2 Delivery O2 Flow Rate FiO2 12/14/17 08:30 77 9 97 12/14/17 08:01 37.0 73 12 106/61 (76) 97 Room Air 12/14/17 08:00 90 12 98 12/14/17 07:40 Room Air 12/14/17 07:30 88 14 96 12/14/17 07:01 80 25 90/59 (69) 97 12/14/17 07:00 84 18 97 12/14/17 06:01 77 16 101/60 (74) 97 Room Air 12/14/17 05:01 68 24 91/58 (69) 97 Room Air 12/14/17 04:31 37.0 81 16 102/67 (79) 98 Room Air 12/14/17 04:00 Room Air 12/14/17 03:01 82 12 92/61 (71) 96 Room Air 12/14/17 02:01 73 14 104/68 (80) 97 Room Air 12/14/17 01:01 80 15 96/62 (73) 99 Room Air 12/14/17 00:01 37.0 65 12 95/62 (73) 97 Room Air 12/14/17 00:01 Room Air 12/13/17 23:01 64 15 91/55 (67) 97 Room Air 12/13/17 22:00 82 12 80/49 (59) 96 Room Air Review Cardiovascular: regular rate, rhythm Lungs: lungs clear Pre-Sedation Airway Assessment Smoking Status: Unknown if Ever Smoked Hx of Sleep Apnea: No Short Thick Neck: No Thyro-mental Distance: > 3 Finger Breadths Oral Cavity: WNL Mallampati Classification: Class I ASA Classification: Class II NPO Status Date of Last Intake of Fluids: Dec 12, 2017 Time of Last Intake of Fluids: 2359 Date of Last Intake of Solids: Dec 12, 2017 Time of Last Intake of Solids: 1900 Procedure Planning Contraindications for Sedation: None Current Medications Reviewed: Yes Notes The planned sedation has been discussed with the patient. Informed Consent was obtained. I have identified the patient, determined the appropriateness of sedation and have assessed the patient immediately prior to the procedure. All medicine(s) and interventions are by my order.
--- NOTE | 2017-12-14 09:08 | Post Sedation Assessment ---
Post Sedation Assessment General Date of Sedation 2017. Vital Signs: Vital Signs Past 12 Hours Date Time Temp Pulse Resp B/P (MAP) Pulse Ox O2 Delivery O2 Flow Rate FiO2 12/14/17 08:30 77 9 97 12/14/17 08:01 37.0 73 12 106/61 (76) 97 Room Air 12/14/17 08:00 90 12 98 12/14/17 07:40 Room Air 12/14/17 07:30 88 14 96 12/14/17 07:01 80 25 90/59 (69) 97 12/14/17 07:00 84 18 97 12/14/17 06:01 77 16 101/60 (74) 97 Room Air 12/14/17 05:01 68 24 91/58 (69) 97 Room Air 12/14/17 04:31 37.0 81 16 102/67 (79) 98 Room Air 12/14/17 04:00 Room Air 12/14/17 03:01 82 12 92/61 (71) 96 Room Air 12/14/17 02:01 73 14 104/68 (80) 97 Room Air 12/14/17 01:01 80 15 96/62 (73) 99 Room Air 12/14/17 00:01 37.0 65 12 95/62 (73) 97 Room Air 12/14/17 00:01 Room Air 12/13/17 23:01 64 15 91/55 (67) 97 Room Air 12/13/17 22:00 82 12 80/49 (59) 96 Room Air Post Procedure Recovery Score Activity: (2) Moves 4 extremities * Respiration: (2) Deep breath/cough Circulation: (2) +/-20% PreAnes Value Consciousness: (1) Arouseable (by name) Oxygen Saturation: (1) O2 needed for >90% Post Anesthesia Score: 8 Discharge Sedation Level of Care: Fast Track Phase II Post Sedation Plan On clinical assessment, the patient appears to have tolerated the sedation without complications. Patient is recovering as anticipated. Patient will continue to be monitored by nursing and may be discharged when sedation discharge criteria are met per below protocol. Upon Completions of procedure and additional 15 minutes continue every 5 minute vital signs and the P.A.R. score; then discharge to a Phase I or Fast Track to Phase II per the following guidelines: * Discharge Patient to appropriate Phase II area if PAR is 8 or greater or return to pre- procedure baseline. The post - procedure orders will be as directed. * If PAR score is less than 8 or not return to pre-procedure baseline then patient will follow Phase I monitoring till PAR is reached for Phase II. The Phase I may be done in procedure room or may call to secure a Phase I area. * If naloxone or flumazenil are used for reversal, hold in Phase I for an additional 60 -120 minutes before discharge to Phase II. Please call the Sedation Physician to re-evaluate and complete post-note for discharge to Phase II area. Do NOT discharge from procedure sedation or Phase 1 until post- sedation evaluation note is complete by procedure /sedation MD Sedation Discharge Instructions to be given to the patient at discharge to home.
[2017-12-14] MEDS ORDERED: HEPARIN SOD (PORCINE) 1000 UNIT/ML 10 ML VIAL ONE (09:33)
[2017-12-14] MEDS ORDERED: HEPARIN SOD (PORCINE) 5000 UNIT/ML 1 ML VIAL ONE (09:33)
[2017-12-14] MEDS ORDERED: MIDAZOLAM HCL 1 MG/ML 2ML VIAL IV ONE (09:34)
[2017-12-14] MEDS ORDERED: FENTANYL CITRATE INJ 50 MCG/1 ML 2 ML VIAL IV ONE (10:05)
[2017-12-14] MEDS ORDERED: SODIUM CHLORIDE 0.9% 1000ML 1,000 ML IV SCH (10:16)
[2017-12-14] MEDS ORDERED: CLOPIDOGREL BISULFATE 300 MG TAB PO STA (10:16)
--- NOTE | 2017-12-14 10:16 | [facility] Post Operative Brief Note ---
Immediate Operative Summary Operative Date Dec 14, 2017. Pre-Operative Diagnosis TPA Recheck Post-Operative Diagnosis [place] Syndrome Procedure(s) Performed Venacavagram, Percutaneous Transluminal Angioplasty and stenting of Left Iliac Vein, Mechanical Thrombectomy Left Iliac Vein Completion of Thrombolytics, Moderate Sedation from 0934 - [address] Ross 1[employer] Grade Teacher Surgeon(s) None Estimated Blood Loss 10 Findings Consistent with Post-Op Diagnosis Specimens None Drains None Anesthesia Type IV Sedat Cons RN Only Complication(s) none Disposition Accompanied Pt To Recover: no Disposition: Surgical ICU
--- NOTE | 2017-12-14 10:16 | Post Sedation Assessment ---
Post Sedation Assessment General Date of Sedation Dec 14, 2017. Vital Signs: Vital Signs Past 12 Hours Date Time Temp Pulse Resp B/P (MAP) Pulse Ox O2 Delivery O2 Flow Rate FiO2 12/14/17 08:30 77 9 97 12/14/17 08:01 37.0 73 12 106/61 (76) 97 Room Air 12/14/17 08:00 90 12 98 12/14/17 07:40 Room Air 12/14/17 07:30 88 14 96 12/14/17 07:01 80 25 90/59 (69) 97 12/14/17 07:00 84 18 97 12/14/17 06:01 77 16 101/60 (74) 97 Room Air 12/14/17 05:01 68 24 91/58 (69) 97 Room Air 12/14/17 04:31 37.0 81 16 102/67 (79) 98 Room Air 12/14/17 04:00 Room Air 12/14/17 03:01 82 12 92/61 (71) 96 Room Air 12/14/17 02:01 73 14 104/68 (80) 97 Room Air 12/14/17 01:01 80 15 96/62 (73) 99 Room Air 12/14/17 00:01 37.0 65 12 95/62 (73) 97 Room Air 12/14/17 00:01 Room Air 12/13/17 23:01 64 15 91/55 (67) 97 Room Air Post Procedure Recovery Score Activity: (2) Moves 4 extremities * Respiration: (2) Deep breath/cough Circulation: (2) +/-20% PreAnes Value Consciousness: (1) Arouseable (by name) Oxygen Saturation: (1) O2 needed for >90% Post Anesthesia Score: 8 Discharge Sedation Level of Care: Fast Track Phase II Post Sedation Plan On clinical assessment, the patient appears to have tolerated the sedation without complications. Patient is recovering as anticipated. Patient will continue to be monitored by nursing and may be discharged when sedation discharge criteria are met per below protocol. Upon Completions of procedure and additional 15 minutes continue every 5 minute vital signs and the P.A.R. score; then discharge to a Phase I or Fast Track to Phase II per the following guidelines: * Discharge Patient to appropriate Phase II area if PAR is 8 or greater or return to pre- procedure baseline. The post - procedure orders will be as directed. * If PAR score is less than 8 or not return to pre-procedure baseline then patient will follow Phase I monitoring till PAR is reached for Phase II. The Phase I may be done in procedure room or may call to secure a Phase I area. * If naloxone or flumazenil are used for reversal, hold in Phase I for an additional 60 -120 minutes before discharge to Phase II. Please call the Sedation Physician to re-evaluate and complete post-note for discharge to Phase II area. Do NOT discharge from procedure sedation or Phase 1 until post- sedation evaluation note is complete by procedure /sedation MD Sedation Discharge Instructions to be given to the patient at discharge to home.
[2017-12-14] MEDS ORDERED: IODIXANOL (VISIPAQUE) 270 MG/ML 150ML FLUSH ONE (10:20)
[2017-12-14] MEDS ORDERED: ORM MISCELLANEOUS MED XX ONE (10:24)
[2017-12-14] MEDS ORDERED: RIVAROXABAN TAB 15 MG TAB PO ONE (10:30)
--- NOTE | 2017-12-14 10:30 | [facility] Operative Report ---
Operative Report Operative Date Dec 14, 2017. Pre-Operative Diagnosis TPA Recheck Post-Operative Diagnosis Sharmaine South Syndrome Procedure(s) Performed Venacavagram, Percutaneous Transluminal Angioplasty and stenting of Left Iliac Vein, Mechanical Thrombectomy Left Iliac Vein Completion of Thrombolytics, USN localization of right femoral vein, cannulation of IVC from right groin Moderate Sedation from 0934 - [address] Ross Newspaper Clipper Surgeon(s) None Estimated Blood Loss 10 Findings A post TPA infusion venogram showed a May South syndrome. Specimens None Drains None Anesthesia Type IV Sedat Cons RN Only Complication(s) none Disposition no Surgical ICU Indications This is a 27-year-old female who had thrombosis of her left iliac vein and swelling left leg. She is undergoing tissue plasminogen activator infusion. She is brought back to the age of suite now for a recheck of her infusion and possible intervention. I have discussed the risks options and benefits of the procedure with the patient. The patient understands the risks options and benefits and agrees to the procedure. Description of Procedure The patient was taken to the angiogram suite and placed in supine position. Quick injection done through the infusion catheter that was present showed partial resolution of the clot in the left iliac vein. There appeared to be stenosis seen in the left iliac vein consistent with May South syndrome. Sterile dressing was then removed, both groins were prepped and draped in a sterile manner. The infusion catheter was removed. We then used the Omni AngioJet catheter and performed mechanical thrombectomy to remove the residual clot in the left iliac vein. Post AngioJet the iliac vein looked patent. There was severe stenosis present in 2 spots in the proximal common iliac vein on the left side. We then anesthetized the right groin and used ultrasound to find the femoral vein. This was punctured and a 6 Finnish sheath was inserted. Venogram from the right side show the right iliac to be widely patent. It showed where the left iliac vein enters the cava. We then upsized the sheet on the left side to 11 Finnish sheath. We dilated the left iliac with a 6 x 6 followed by a 10 x 6 balloon. There was still residual stenosis. We then placed an 18 x 4 wall stent. We did a completion film at that time which still showed a residual slight stenosis just above the stent. We extended the stent upward with a 20 x 4 wall stent. Injection was then done from both groins simultaneously showing a nice confluence of the iliac veins with excellent flow through both sides. We then pulled the 11 Finnish sheath down to the common femoral vein and then injected. The left external and common iliac veins are now widely patent with no residual stenosis and excellent flow. No collaterals were noticed. Both sheaths were then pulled pressure was applied adequate hemostasis was obtained. Patient left the Endo suite in good condition tolerated procedure well. I attest to the content of the Intraoperative Record and any orders documented therein. Any exceptions are noted below.
[2017-12-14] MEDS ORDERED: CLOP1TAB5 PO (11:15)
[2017-12-14] MEDS ORDERED: XRL10 PO (11:15)
[2017-12-14] MEDS ORDERED: OXYC-57 PO (11:15)
--- NOTE | 2017-12-14 11:17 | Discharge Instructions ---
Discharge Instructions Date of Service Dec 14, 2017. Admission Reason for Admission: Iliac Vein Thrombosis, Left Discharge Discharge Diagnosis / Problem: Left iliac vein thrombosis Discharge Goals Goal(s): Therapeutic intervention Activity Recommendations Activity Limitations: per Instructions/Follow-up section . Instructions / Follow-Up Instructions / Follow-Up Call [phone] to schedule a follow up appointment if one not already scheduled. SPECIAL CARE INSTRUCTIONS: Medications: * Continue to take your medications as directed. If you have been given a prescription for Plavix, please fill it immediately and take as directed. Incision Care: * Your puncture site may have some bruising and minor swelling for about one week. * You will have a small dressing covering your puncture site. You may remove the dressing after 24 hours and shower. You may let the warm soapy water run over it, but be sure to dry the puncture site well and keep it dry. * DO NOT IMMERSE THE INCISION IN A TUB/POOL/etc. UNTIL HEALED. * Puncture sites should be kept covered with a band-aid until it begins to heal. Restrictions: * Depending on whether you leg or arm was punctured to access the arteries, you will be required to lay flat, hold your arm still, or both, for about 4 hours after the procedure to prevent bleeding. * Limit your activity for the first 48 hours. You may walk and go up and down steps. Avoid excessive bending or movement at the puncture site. Possible Complications: * Excessive Swelling - after blood flow is improved you may notice increased swelling in the lower legs. This is a normal response. This usually depends on the amount of blockages in the leg, how long they have been there prior to your procedure and how much blood flow was restored. Elevating your legs will help to improve this. Please notify our office ([phone] ) if the swelling does not go away after lying in bed overnight. * Infection/Drainage/Bleeding - Drainage or bleeding from the puncture site should be minimal. If you have excessive bleeding or drainage, call our office ([phone]) right away. * Pain - You may experience some mild pain or soreness at your puncture site. If your pain does not improve, please contact our office ([phone]). Call your doctor and seek emergent treatment if you develop: * Temperature above 101 degrees * Any fever or chills * Any redness or purulent drainage from the puncture site * Any new dusky/blue colored toes or feet with coolness or sharp or aching pain. SKIN IRRITATION: * You may experience some redness and/or swelling in the area where radiation was administered. If any skin irritation occurs, please contact your family physician. FOLLOW UP VISIT: Keep any scheduled doctor appointments. Current Hospital Diet Patient's current hospital diet: Regular Diet Discharge Diet Recommended Diet: Regular Diet Procedures Procedures Performed: Venacavagram, Percutaneous Transluminal Angioplasty and stenting of Left Iliac Vein, Mechanical Thrombectomy Left Iliac Vein Completion of Thrombolytics, USN localization of right femoral vein, cannulation of IVC from right groin Moderate Sedation from 0934 - 1011 Pending Studies Studies pending at discharge: no Medical Emergencies . Who to Call and When: Medical Emergencies: If at any time you feel your situation is an emergency, please call 911 immediately. . Non-Emergent Contact Non-Emergency issues call your: Surgeon . "Provider Documentation" section prepared by Fahad Ross. . [place] Drug Monitoring Program Search Results: no issues identified
[2017-12-14] MEDS: OXYCODONE/ACETAMINOPHEN 5-325 TAB PO PRN (11:25)
--- NOTE | 2017-12-14 12:24 | Clinical Documentation Query ---
Dr. GOMEZ ALINA : CLINICAL DOCUMENTATION QUERY Documentation includes Sharmaine South Syndrome and May South Syndrome. Unable to index either of these terms. Please clarify as is unknown to this reader if this was this intended documentation or was voice recognition error. Thank you for your review. In your clinical opinion is this patient being managed for: ( ) Iliac vein compression syndrome/May-Thurner syndrome ( ) Not Agree ( ) Other explanation of clinical findings (Please Explain) ( ) Unable to determine (Please Define) ( ) Need to Discuss The medical record reflects the following clinical findings, treatment, and risk factors. 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 Terms such as "probable", "suspected", "likely", "questionable", "possible", or "still to be ruled out" are acceptable. IF IN AGREEMENT, YOU MUST DOCUMENT ABOVE DIAGNOSTIC STATEMENT IN DAILY PROGRESS NOTES AND DISCHARGE SUMMARY. This document is not part of the patient's record. Thank You, Boy Botello, RN [phone]
[2017-12-14] MEDS: ONDANSETRON INJ 2 MG/ML 2 ML VIAL IV PRN (14:47)
--- NOTE | 2017-12-18 13:39 | DISCHARGE SUMMARY ---
ADMISSION DIAGNOSIS: Left iliac vein thrombosis. DISCHARGE DIAGNOSES: 1. Status post mechanical thrombectomy of left iliac vein, percutaneous transluminal angioplasty and stenting of left iliac vein. 2. 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 DISCHARGE CONDITION: Stable. CONSULTATIONS IN THE HOSPITAL: Included none. PROCEDURES IN THE HOSPITAL: 1. Insertion of an inferior vena cava filter and insertion of an infusion catheter for thrombolytic therapy on 12/13/2017. This was performed without any significant complications and an EBL of 2 mL. 2. On 12/14/2017, patient underwent a venacavogram, a percutaneous transluminal angioplasty and stenting of the left iliac vein, and mechanical thrombectomy of the left iliac vein, which was also performed without any significant complications and an EBL of 10 mL. HISTORY OF PRESENT ILLNESS: Ms. Elliott is a 27-year-old female who developed severe swelling of her left leg approximately 1 week prior to admission. She was diagnosed with a left iliac vein thrombosis by her local medical practitioner. She was started on Xarelto for treatment. She underwent a repeat study a few days later which did not show any significant improvement in her venous thrombosis. Patient continued to complain of severe pain and swelling of her left leg. She has had no previous history of a DVT in the past and she denies any family history of similar events. She denied any chest pain or shortness of breath when she was seen at an outside facility. A call was placed for intervention to Dr. Ross and he accepted the patient here in transfer. Patient was recommended to undergo thrombolytic therapy due to her severe occlusive proximal vein thrombosis and the possibility of having May-Thurner syndrome. The procedure was discussed with the patient and she expressed understanding and agreement to proceed. HOSPITAL COURSE: Patient underwent her left leg vein infusion catheter insertion and IVC filter insertion which she tolerated well. She had no complications postoperatively. The following day she underwent a TPA recheck to determine the success of thrombolytic therapy. A severe narrowing was noted at her left iliac vein and she was diagnosed with May-Thurner syndrome. She did undergo stenting of that area to maintain patency. She will continue on anticoagulation and consideration is to be made in the next few months for possible IVC filter removal if patient remains stable and does not have any further complications. Patient tolerated her secondary procedure well and had significant improvement in the edema and pain of her left leg. She was felt to be stable enough for discharge postoperatively that day. PHYSICAL EXAMINATION: VITAL SIGNS: On day of discharge, her vital signs are as follows: A temperature of 37.0, pulse of 76, respiratory rate of 15, blood pressure of 101/62, pulse oximetry of 96% on room air. CONSTITUTIONAL: In general, patient is a healthy for age appearing, well-nourished, well-developed young female in no acute distress. She ambulated without assistance and was active, alert and oriented x4. HEAD: Normocephalic and atraumatic. EYES: EOMI. ENMT: Demonstrates no hearing loss, rhinorrhea or pharyngeal erythema. NECK: Supple, nontender with a midline trachea without mass or crepitus. LUNGS: Demonstrated no dyspnea. They were clear bilaterally. CARDIOVASCULAR: Demonstrated nondisplaced apical impulse with a regular rate and rhythm. Peripheral pulses are full and equal in all extremities unless otherwise noted, specifically they were normal in her carotid, brachial, radial, femoral and distal pulses in her lower extremities. She had no sign of distal ischemia. ABDOMEN: Soft, nontender with normoactive bowel sounds in all 4 quadrants. No guarding or rebound. There was no flank or CVA tenderness. Her bilateral groin puncture sites and left popliteal puncture sites were healing well and demonstrated some mild tenderness and bruising. There was no erythema or large firm hematoma noted. EXTREMITIES: Patient's bilateral upper extremities demonstrate no cyanosis, edema, clubbing, varicosities or ulcers. Her right lower extremity demonstrated no cyanosis, edema, clubbing, varicosities or ulcers. Her left lower extremity did demonstrate 1+ to +2 edema, which was a significant improvement from previous where it was +4. She had no particular varicosities. There were no ulcerations or concerns for ischemia. NEUROLOGIC: Patient has grossly intact cranial nerves are grossly intact sensation. DIET UPON DISCHARGE: Should be a regular diet. Medications were reconciled on the chart and are as per her discharge instructions with the noted addition of Plavix to her regimen due to her left iliac vein stent. Followup should be with Dr. Ross or his PA Niecy Hernández within 2 weeks for reevaluation. She was advised to call the office with any other questions or concerns.
== END 2017-12-14 15:13 | disposition home or self-care (01) | DRG 272 ==
LOC: C.EDB 11:50 → C.MSW 12:35 → ENRESERV 13:00 → C.MSICU 12-13 10:42
PROVIDERS: ADMIT Surgery Vascular Surgery; ATTEND Surgery Vascular Surgery
PROC: 06HM33Z Insertion of Infusion Device into Right Femoral Vein, Percutaneous Approach (ICD-10-PCS; principal; 2017-12-13 08:00)
PROC: 3E04317 Introduction of Other Thrombolytic into Central Vein, Percutaneous Approach (ICD-10-PCS; principal; 2017-12-13 08:00)
PROC: 06H03DZ Insertion of Intraluminal Device into Inferior Vena Cava, Percutaneous Approach (ICD-10-PCS; principal; 2017-12-13 08:00)
PROC: 06CY3ZZ Extirpation of Matter from Lower Vein, Percutaneous Approach (ICD-10-PCS; 2017-12-14)
PROC: 067Y3DZ Dilation of Lower Vein with Intraluminal Device, Percutaneous Approach (ICD-10-PCS; 2017-12-14)
DX: I82.422 Acute embolism and thrombosis of left iliac vein (principal); Q96.9 Turner's syndrome, unspecified; Z88.2 Allergy status to sulfonamides; Z79.01 Long term (current) use of anticoagulants